=== PATIENT | male | born 2000 | race Hispanic/Latino ===

== ENCOUNTER 2022-01-10 16:46 | Emergency (ER) | payer OTHER ==
[~2022-01-10] VITALS: Ht 182.9 cm; Wt 86.7 kg
[2022-01-10] MEDS ORDERED: IBUPROFEN 600MG TAB PO ONE (19:45)
[2022-01-10] MEDS ORDERED: LIDOCAINE VISCOUS 2% SOLN 15ML UDC SS ONE (19:45)
[2022-01-10] MEDS ORDERED: IBUP-1022 PO (20:19)
[2022-01-10] MEDS ORDERED: LIDO2SO PO (20:19)
[2022-01-10 20:32] VITALS: BP 121/67
== END 2022-01-10 20:39 | disposition home or self-care (01) ==
LOC: M ED 16:46
DX: J02.9 Acute pharyngitis, unspecified (principal)